=== PATIENT | male | born 1950 | race Caucasian/White ===

== ENCOUNTER 2016-10-24 10:17 | Day surgery (SDC) | payer MEDICARE, OTHER ==
[2016-10-21 10:33] LABS: BASOPHILS 0.2 %; BASOPHILS ABSOLUTE 0.01 10/3/uL (0.0-0.16); EOSINOPHILS 4.3 %; EOSINOPHILS ABSOLUTE 0.26 10/3/uL (0.0-0.53); HEMATOCRIT 43.9 % (40.0-51.0); IMMATURE GRANULOCYTES 0.2 %; IMMATURE GRANULOCYTES ABSOLUTE 0.01 10/3/uL (0.0-0.11); LYMPHOCYTES ABSOLUTE 2.26 10/3/uL (0.67-4.30); MEAN CORPUS HGB CONC 34.2 g/dL (32.0-36.0); MEAN CORPUSCULAR HEMOGLOB 31.1 pg (26.0-34.0); MEAN CORPUSCULAR VOLUME 91.1 fL (80-100); MEAN PLATELET VOLUME 9.7 fL (9.2-13.0); MONOCYTES 11.6 %; MONOCYTES ABSOLUTE 0.71 10/3/uL (0.21-1.20); NEUTROPHILS 46.7 %; NEUTROPHILS ABSOLUTE 2.85 10/3/uL (2.02-8.40); PLATELET COUNT 195 10/3/uL (150-400); RBC DISTRIBUTION WIDTH 13.6 % (12.0-16.0); RED CELL COUNT 4.82 10/6/uL (4.7-6.1); WHITE BLOOD CELLS 6.1 10/3/uL (4.5-10.5)
[2016-10-21 10:34] LABS: MANUAL DIFF NO %
[2016-10-21 10:48] LABS: A/G RATIO 1.1 (0.7-1.9); ALBUMIN 3.6 G/DL (3.5-5.0); ALKALINE PHOSPHATASE 127 U/L (45-117); BUN (BLOOD UREA NITROGEN) 17 MG/DL (6-23); CALCIUM, SERUM 8.9 MG/DL (8.5-10.4); CHLORIDE, SERUM 108 MMOL/L (96-112); CO2 (CARBON DIOXIDE) 26 MMOL/L (24-34); CREATININE 1.23 MG/DL (0.70-1.30); GFR AFRICAN AMERICAN 70 ML/MIN (>=60); GFR NON AFRICAN AMERICAN 61 ML/MIN (>=60); GLOBULIN 3.3 G/DL (2.5-4.1); GLUCOSE, SERUM 84 MG/DL (60-99); POTASSIUM, SERUM 3.8 MMOL/L (3.5-5.3); SGOT(AST) 11 U/L (5-40); SGPT(ALT) 19 U/L (5-65); SODIUM, SERUM 145 MMOL/L (135-148); TOTAL BILIRUBIN 0.6 MG/DL (0-1.2); TOTAL PROTEIN 6.9 G/DL (6.0-8.5)
--- NOTE | ~2016-10-24 | OP ---
Record Of Operation [facility] [address] [place]. [address] NAME: VIVIAN DALY : 50 STATUS : [facility]#: [id number] AGE: 66 ADM/REG DATE : 10/24/16 MR#: [id number] REPORT SERV DATE: 10/24/16 DICTATED BY: CARLOS A NIETO III DATE: 10/24/16 REPORT STATUS : Draft TRANSCRIBED BY: MODMisti DATE: 10/24/16 DATE OF PROCEDURE: 10/24/2016 PREOPERATIVE DIAGNOSIS: Symptomatic left inguinal hernia. POSTOPERATIVE DIAGNOSIS: Symptomatic left inguinal hernia, direct left inguinal hernia. PROCEDURE: Open Pratik tension-free repair of left inguinal hernia with Prolene mesh. SURGEON: Carlos A Nieto M.D. ANESTHESIA: General with intubation. COMPLICATIONS: None. ESTIMATED BLOOD LOSS: Less than 5 mL. SPECIMENS: None. DRAINS: None. LAP AND SPONGE COUNT: Correct x3. BRIEF HISTORY: This 66-year-old male presented with a symptomatic left inguinal hernia. It was felt that open left inguinal hernia repair was indicated. This procedure, the risks, benefits, alternatives, including not limited to the risk for bleeding, infection, pain, swelling, scarring, deformity to the area, seroma formation, hematoma formation, recurrence of the hernia, nerve injury, chronic paresthesia or pain in the thigh, scrotum or groin, chronic neuralgia or neuroma, and unforeseen complications including deep venous thrombosis, pulmonary embolus, myocardial infarction, stroke, pneumonia, and , were explained to the patient prior to surgery. The expected length of recovery was explained. The patient's questions were answered. He understood the risks and agreed to surgery as planned. DESCRIPTION OF PROCEDURE: After being properly identified and after discussing risks of surgery with the patient's family again in the preoperative area and after identifying the hernia with him in the preoperative area, the patient was taken to the operating room and placed in supine position on the operating room table. General anesthesia was administered and he was intubated without difficulty. The abdomen and groins were prepped and draped sterilely in the usual fashion. After an appropriate "time-out" per JCAHO standards, a small oblique incision was made in the left groin from the pubic tubercle medially towards the anterior superior iliac spine laterally. The incision was continued through the subcutaneous tissue. Hemostasis was controlled with cautery. The external oblique fascia was identified. This fascia was opened along the direction of its fibers, so as to open the external inguinal ring. Using sharp dissection, the underlying ilioinguinal and genitofemoral nerves were identified, these were carefully isolated and protected to one side. Using sharp dissection, the spermatic cord and its contents were mobilized from the Record Of Operation [facility] [id number] [facility]. [address] NAME: VIVIAN DALY : 50 STATUS : [facility]#: [id number] AGE: 66 ADM/REG DATE : 10/24/16 MR#: [id number] REPORT SERV DATE: 10/24/16 DICTATED BY: CARLOS A NIETO III DATE: 10/24/16 REPORT STATUS : Draft TRANSCRIBED BY: GARLAND DATE: 10/24/16 floor of the canal and a Toyin drain placed beneath it. There was noted to be a fairly large direct hernia protruding through the floor of the canal, just medial to the internal ring. The spermatic cord was skeletonized and it was noted that there was no indirect component to the hernia. Using sharp dissection, the hernia was dissected free from the surrounding tissues. It was reduced back into the abdominal cavity. The fascial defect was closed with an interrupted 2 0 silk sutures, which were placed between the shelving edge of the inguinal ligament laterally and the internal oblique and transversalis fascia medially. This resulted in good closure of the defect with no tension. Hemostasis was assured. A Prolene mesh was then selected and cut to the appropriate size for the floor of the canal. A slit was made in the mesh laterally to incorporate the spermatic cord. The mesh was then secured to the floor of the canal with a running 2-0 Prolene suture, which was placed between the edge of the mesh and the shelving edge of the inguinal ligament laterally and the edge of the mesh and internal oblique and transversalis fascia medially. The mesh was secured lateral to the cord as well. Upon completion of this, the mesh laid nicely on the floor of the canal, it was not twisted or kinked in any way, and it was not under any tension. A small finger could be placed through the internal ring so that the spermatic vessels had not been unduly tightened or narrowed. Hemostasis was assured. The external oblique fascia was closed with running 2-0 silk suture. The subcutaneous tissue was closed with running 3-0 chromic suture and the skin was closed with a running subcuticular 4-0 Monocryl stitch. The incision was injected with 0.5% Marcaine. Dressings were applied. Anesthesia was reversed. The patient was taken to the recovery room in stable condition. He tolerated the procedure well. His family was informed results of surgery. The patient will be discharged when stable and comfortable, able to void and ambulate. His family was advised that he should keep his wound clean and dry for 48 hours. He should not drive for three to four days after surgery or using narcotics and then he should resume his usual medications and then he should not perform any heavy lifting for five to six weeks. He has been asked to return in two weeks for followup or sooner if any fever, chills, wound drainage, or other problems prior to that time. He was given a prescription for Percocet 7.5 one t.i.d., #12, as needed for pain, which he was advised not to use while driving. He was also advised to resume his usual medications. AIDEEJ/GARLAND Carlos A Nieto III, M.D. / [id number] CC: Arabella Beckham III, M.D.
--- NOTE | ~2016-10-24 | PREOPHP ---
PreOp History and Physical [facility] [id number] [place]. [address] NAME: VIVIAN DALY : 50 STATUS : PRE [facility]#: [id number] AGE: 66 ADM/REG DATE : MR#: [id number] REPORT SERV DATE: 10/24/16 DICTATED BY: CARLOS A NIETO III DATE: 10/19/16 REPORT STATUS : Draft TRANSCRIBED BY: MODL DATE: 10/19/16 HISTORY OF PRESENT ILLNESS: This 66-year-old male comes to the operating room for open repair of a symptomatic left inguinal hernia. The patient has a left inguinal hernia which has been present for several years. The hernia has become symptomatic in terms of local pain and discomfort. The patient comes to the operating room now for open repair of this left inguinal hernia. The patient has had no nausea, vomiting, or obstructive symptoms. The patient had a CT scan of the abdomen and pelvis one year ago, which showed this hernia. PAST MEDICAL HISTORY: 1. Hyperlipidemia. 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 3. Facial spasm. 4. Benign prostatic hypertrophy. MEDICATIONS: Carbamazepine, rosuvastatin, Prilosec. ALLERGIES: NONE. PAST SURGICAL HISTORY: Status post inguinal hernia repair on the right and Tyler fundoplication. FAMILY HISTORY: Unremarkable. SOCIAL HISTORY: No history of tobacco or alcohol use. REVIEW OF SYSTEMS: The patient's 14-point review of systems is otherwise unremarkable. PHYSICAL EXAMINATION: GENERAL: This is a male, in no acute distress. He is alert and oriented x3. VITAL SIGNS: Blood pressure 156/99, pulse 81, temperature 98.8. HEENT: Unremarkable. Cranial sutures II through XII were normal. LUNGS: Clear. CARDIAC: Normal. ABDOMEN: Soft and nontender. In the left groin, there is a moderate size inguinal hernia which is reducible. ASSESSMENT: 1. A 66-year-old male with symptomatic left inguinal hernia. 2. Facial spasm. 3. History of 7th cranial nerve abnormality. PLAN: The patient comes to the operating room now for open left inguinal hernia repair. This procedure, the risks, benefits, and alternatives, including but not limited to the risk for bleeding, infection, pain, swelling, scarring deformity to the area, seroma formation, hematoma formation, recurrence of the hernia, nerve injury, chronic paresthesia or pain in the thigh, scrotum, or groin, chronic neuralgia or neuroma, and unforeseen complications PreOp History and Physical [address] [place]. [address] NAME: VIVIAN DALY : 50 [place] : [place] [facility] [place] [id number] AGE: 66 ADM/REG DATE : MR#: [id number] REPORT SERV DATE: 10/24/16 DICTATED BY: CARLOS A NIETO III DATE: 10/19/16 REPORT STATUS : Draft TRANSCRIBED BY: GARLAND DATE: 10/19/16 including deep venous thrombosis, pulmonary embolus, myocardial infarction, stroke, pneumonia, and , have been explained to the patient prior to surgery. The expected length of recovery has been explained. His questions have been answered. He understands the risks and agrees to surgery as planned. RHIrvin/GARLAND Carlos A Nieto III, M.D. / [id number]
[~2016-10-24 10:17] MED LIST: CARBAT300 PO; CRESTOR10 PO; FISH-EPA1000 MG PO; PRILO PO
== END 2016-10-24 16:57 | disposition home or self-care (01) ==
LOC: SDC 10:17
PROVIDERS: Surgery
PROC: 0YU60JZ Supplement Left Inguinal Region with Synthetic Substitute, Open Approach (ICD-10-PCS; principal; 2016-10-24 11:30)
DX: K40.90 Unilateral inguinal hernia, without obstruction or gangrene, not specified as recurrent (principal); E78.5 Hyperlipidemia, unspecified; N40.0 Benign prostatic hyperplasia without lower urinary tract symptoms; G51.3 Clonic hemifacial spasm; K21.9 Gastro-esophageal reflux disease without esophagitis; Z79.899 Other long term (current) drug therapy; Z98.890 Other specified postprocedural states; Z88.1 Allergy status to other antibiotic agents; Z90.49 Acquired absence of other specified parts of digestive tract
CPT/HCPCS: 71020; 80053; 85025; 93005; A9270-GY; C1781; J0690; J2250; J2405; J2710; J3010